=== PATIENT | female | born 1965 | race African-American/Black ===

== ENCOUNTER 2022-06-30 15:09 | Inpatient (IN) ==
[2022-06-30] MEDS ORDERED: NS 1,000 ML IV 1,000 ML ONE ×3 (15:16→17:51)
[2022-06-30] MEDS ORDERED: ZOFRAN INJ 4 MG VIAL IVP ONE (15:19)
[2022-06-30] MEDS ORDERED: NS 1,000 ML IV 1,000 ML IV ONE ×2 (15:19→16:41)
--- NOTE | 2022-06-30 15:19 | DR.DIZZY ---
HPI Time seen Time Seen by Provider: 06/30/22 15:41 Complaint Chief Complaint Doctor Comments: 56 y/o female presents for evlauation. Is perimenopausal, last menses 07/2021, last 6 weeks. Has had vaginal bleeding x 3 weeks, heavy at times. Now ill x 3 days - + frequent nausea, vomiting, unable to keep food/fluid down. Having lower abdominal cramping, radiates to back. Having weakness. Is a diabetic, glucose running high. Nurses Notes Reviewed Nurses Notes Review: Yes Source History Provided: Patient Context Stroke Symptoms: None PMH PMH Past Medical History: Yes Past Medical History: Diabetes and Hypertension Surgical History: No History Social History Does patient currently use any type of tobacco product: No Alcohol Use: None Do you use any recreational Drugs:: No ROS Review of Systems Constitutional: Malaise and Weakness Eyes: Blurred Vision ENTM: No Symptoms Reported Respiratoy: Non-Productive Cough Cardiovascular: No Symptoms Reported Gastrointestinal/Abdominal: Abdominal Pain, Nausea and Vomiting Genitourinary: Bleeding (vaginal, x 3 weeks) Neurological: Weakness and Dizziness Musculoskeletal: No Symptoms Reported Integumentary: No Symptoms Reported Hematologic/Lymphatic: No Symptoms Reported Psychiatric: No Symptoms Reported All Other Systems: Reviewed and Negative PE Vital Signs Vitals: Temperature 98.4 F Pulse Rate 118 Respiratory Rate 25 Blood Pressure 144/73 O2 Sat by Pulse Oximetry 99 General General Appearance: Alert and In No Apparent Distress Eyes Eye exam: PERRL and EOMI ENT ENT Exam: Normal Oropharynx and Mucous Membranes Moist Neck Neck Exam: Normal Inspection and Full ROM Respiratory Respiratory Exam: Normal Lung Sounds Bilat; negative Accessory Muscle Use or Respiratory Distress Cardiovascular Cardiovascular Exam: Regular Rate, Normal Rhythm and Normal Heart Sounds Abdominal Exam Abdominal Exam: Normal Inspection, Normal Bowel Sounds and Soft; negative Tenderness Extremeties Extremities Exam: Normal Inspection and Full ROM; negative Edema Neurologic Neurological Exam: Alert, Oriented X3 and CN II-XII Intact; negative Motor Sensory Deficit Skin Skin Exam: Warm and Dry COURSE Treatment Treatment: 56 y/o, menopausal, having vaginal bleeding x 3 weeks. Now ill x 3 days. + N/V, weakness. W/u initiated. Presentation c/w DKA. Glucose 453, low serum bicarb at 10.6. + moderate acetone in serum. CBC acceptable. Negative for covid/flu. Pt given 2L NS in the ER, 6 U regula insulin bolus. Started insulin drip. Discussed with Dr Thao, will admit. ROR Labs Reviewed Laboratory Results Reviewed?: Yes Result Diagrams: 06/30/22 15:34 06/30/22 15:34 Laboratory: WBC 12.3 X10^3/uL (3.6-10.0) H 06/30/22 15:34 RBC 5.14 X10^6/uL (3.5-5.4) 06/30/22 15:34 Hgb 14.3 g/dL (12.0-16.0) 06/30/22 15:34 Hct 44.9 % (36.0-47.0) 06/30/22 15:34 MCV 87.3 fL (80.0-100.0) 06/30/22 15:34 MCH 27.8 pg (27.0-34.0) 06/30/22 15:34 MCHC 31.8 g/dL (33.0-35.0) L 06/30/22 15:34 RDW 15.6 % (11.6-16.5) 06/30/22 15:34 Plt Count 306 X10^3/uL (150.0-450.0) 06/30/22 15:34 MPV 11.5 fL (7.4-11.0) H 06/30/22 15:34 Neut % (Auto) 80.7 % (42.0-75.0) H 06/30/22 15:34 Lymph % (Auto) 12.2 % (21.0-51.0) L 06/30/22 15:34 [place] % (Auto) 5.4 % (0.0-13.0) 06/30/22 15:34 Eos % (Auto) 0.1 % (0.9-2.9) L 06/30/22 15:34 Baso % (Auto) 1.6 % (0.2-1.0) H 06/30/22 15:34 Neut # (Auto) 10.0 x10^3/uL (2.2-4.8) H 06/30/22 15:34 Lymph # (Auto) 1.5 X10^3/uL (1.3-2.9) 06/30/22 15:34 [place] # (Auto) 0.7 x10^3/uL (0.3-0.8) 06/30/22 15:34 Eos # (Auto) 0.0 x10^3/uL (0.0-0.2) 06/30/22 15:34 Baso # (Auto) 0.2 X10^3/uL (0.0-0.1) H 06/30/22 15:34 Absolute Nucleated RBC 0.0 /100WBC 06/30/22 15:34 Sample Site Rrad 06/30/22 16:22 ABG pH 7.130 (7.35-7.45) L* 06/30/22 16:22 ABG pCO2 17.0 mmHg (35.0-45.0) L* 06/30/22 16:22 ABG pO2 174.0 mmHg (80.0-100.0) H 06/30/22 16:22 ABG HCO3 5.7 mmol/L (22-26) L* 06/30/22 16:22 ABG O2 Saturation 99.0 % (90-100) 06/30/22 16:22 ABG Base Excess -21.5 mmol/L (-2.0-2.0) L 06/30/22 16:22 [place] Test Pos 06/30/22 16:22 A-a Gradient -46.0 mmHg 06/30/22 16:22 FiO2 21.0 06/30/22 16:22 Blood Gas Comments Pt didi well elj 06/30/22 16:22 Sodium 134 mmol/L (136-145) L 06/30/22 15:34 Corrected Sodium 142 mmol/L (136-145) 06/30/22 15:34 Potassium 4.8 mmol/L (3.5-5.1) 06/30/22 15:34 Chloride 97 mmol/L (98-107) L 06/30/22 15:34 Carbon Dioxide 10.6 mmol/L (21-32) L* 06/30/22 15:34 BUN 22 mg/dL (7-18) H 06/30/22 15:34 Creatinine 1.39 mg/dL (0.55-1.02) H 06/30/22 15:34 Est GFR (MDRD) Af Amer 50 (>60) L 06/30/22 15:34 Est GFR (MDRD) Non-Af 42 (>60) L 06/30/22 15:34 Glucose 453 mg/dL (65-99) H 06/30/22 15:34 Calcium 8.7 mg/dL (8.5-10.1) 06/30/22 15:34 Corrected Calcium TNP 06/30/22 15:34 Total Bilirubin 0.50 mg/dL (0.2-1.0) 06/30/22 15:34 AST 17 Units/L (15-37) 06/30/22 15:34 ALT 35 Units/L (12-78) 06/30/22 15:34 Alkaline Phosphatase 129 Units/L (46-116) H 06/30/22 15:34 Total Protein 9.2 g/dL (6.4-8.2) H 06/30/22 15:34 Albumin 4.1 g/dL (3.4-5.0) 06/30/22 15:34 Globulin 5.1 g/dL (2.5-4.5) H 06/30/22 15:34 Albumin/Globulin Ratio 0.8 Ratio (1.1-2.1) L 06/30/22 15:34 Lipase 57 Units/L (73-393) L 06/30/22 15:34 HCG, Qual Negative <10 mIU/mL 06/30/22 15:34 Specimen Type Clean catch urine 06/30/22 16:01 Urine Color Bloody (YELLOW) 06/30/22 16:01 Urine Appearance Hazy (CLEAR) 06/30/22 16:01 Urine pH 5.0 (5.0 - 8.0) 06/30/22 16:01 Ur Specific [place] 1.025 (1.000-1.030) 06/30/22 16:01 Urine Protein 3+ (NEGATIVE) 06/30/22 16:01 Urine Glucose (UA) 4+ (NEGATIVE) 06/30/22 16: Urine Ketones 4+ (NEGATIVE) 06/30/22 16: Urine Blood 5+ (NEGATIVE) 06/30/22 16: Urine Nitrite Negative (NEGATIVE) 06/30/22 16: Urine Bilirubin Negative (NEGATIVE) 06/30/22 16:01 Urine Urobilinogen Normal (NORMAL) 06/30/22 16:01 Ur Leukocyte Esterase Negative (NEGATIVE) 06/30/22 16:01 Urine RBC Tntc /HPF (0-3) A 06/30/22 16:01 Urine WBC 0-2 /HPF (0-5) 06/30/22 16:01 Ur Squamous Epith Cells Moderate /HPF (NEGATIVE) 06/30/22 16:01 Urine Bacteria Trace /HPF (NEGATIVE) 06/30/22 16:01 Ur Culture Indicated? No/not indicated 06/30/22 16:01 Acetone, Semi-Quant Moderate (NEGATIVE) H 06/30/22 15:34 SARS-CoV-2 (PCR) Negative (NEGATIVE) 06/30/22 16:15 Influenza Type A (PCR) Negative (NEGATIVE) 06/30/22 16:15 Influenza Type B (PCR) Negative (NEGATIVE) 06/30/22 16:15 RSV (PCR) Negative (NEGATIVE) 06/30/22 16:15 Opioid Opioid Risk Tool Total: 0 Total Score Risk Category: Low Risk Copyright: Jake SILVESTRE predicting aberrant behaviors Discharge Plan Diagnosis Discharge Problem: DKA (diabetic ketoacidosis) Discharge Plan Patient Disposition: 09 ADMITTED INPATIENT Condition: Stable
[2022-06-30] MEDS ORDERED: ZOFRAN INJ 4 MG VIAL ONE (15:29)
[2022-06-30 15:51] LABS: SERUM ACETONE MODERATE (NEGATIVE)
[2022-06-30 15:54] LABS: BASOPHILS # (AUTO) 0.2 X10^3/uL (0.0-0.1); BASOPHILS % (AUTO) 1.6 % (0.2-1.0); EOSINOPHILS % (AUTO) 0.1 % (0.9-2.9); HEMATOCRIT 44.9 % (36.0-47.0); HEMOGLOBIN 14.3 g/dL (12.0-16.0); LYMPHOCYTES # (AUTO) 1.5 X10^3/uL (1.3-2.9); LYMPHOCYTES % (AUTO) 12.2 % (21.0-51.0); MEAN CORPUSCULAR HEMOGLOBIN 27.8 pg (27.0-34.0); MEAN CORPUSCULAR HGB CONC 31.8 g/dL (33.0-35.0); MEAN CORPUSCULAR VOLUME 87.3 fL (80.0-100.0); MEAN PLATELET VOLUME 11.5 fL (7.4-11.0); MONOCYTES # (AUTO) 0.7 x10^3/uL (0.3-0.8); MONOCYTES % (AUTO) 5.4 % (0.0-13.0); NEUTROPHILS % (AUTO) 80.7 % (42.0-75.0); RED BLOOD COUNT 5.14 X10^6/uL (3.5-5.4); RED CELL DISTRIBUTION WIDTH 15.6 % (11.6-16.5); WHITE BLOOD COUNT 12.3 X10^3/uL (3.6-10.0)
[2022-06-30 15:56] LABS: ALANINE AMINOTRANSFERASE 35 Units/L (12-78); ALBUMIN 4.1 g/dL (3.4-5.0); ALKALINE PHOSPHATASE 129 Units/L (46-116); ASPARTATE AMINO TRANSFERASE 17 Units/L (15-37); BLOOD UREA NITROGEN 22 mg/dL (7-18); CALCIUM 8.7 mg/dL (8.5-10.1); CHLORIDE 97 mmol/L (98-107); COR NA(FOR HYPERGLY) 142 mmol/L (136-145); CREATININE 1.39 mg/dL (0.55-1.02); LIPASE 57 Units/L (73-393); SODIUM 134 mmol/L (136-145); TOTAL PROTEIN 9.2 g/dL (6.4-8.2); eGFR NON BLACK RACES 42 (>60)
[2022-06-30 16:02] LABS: CARBON DIOXIDE 10.6 mmol/L (21-32)
[2022-06-30 16:08] LABS: BILIRUBIN,URINE NEGATIVE (NEGATIVE); BLOOD/HEMOGLOBIN,URINE 5+ (NEGATIVE); GLUCOSE, URINE 4+ (NEGATIVE); KETONES,URINE 4+ (NEGATIVE); LEUKOCYTE ESTERASE ,URINE NEGATIVE (NEGATIVE); NITRITES,URINE NEGATIVE (NEGATIVE); PROTEIN,URINE 3+ (NEGATIVE); UROBILINOGEN,URINE NORMAL (NORMAL)
[2022-06-30 16:13] LABS: APPEARANCE,URINE HAZY (CLEAR); COLOR,URINE BLOODY (YELLOW)
[2022-06-30 16:14] LABS: BACTERIA,URINE TRACE /HPF (NEGATIVE); RBC,URINE TNTC /HPF (0-3); SQUAMOUS EPITHELIAL CELL,UR MODERATE /HPF (NEGATIVE)
[2022-06-30 16:19] LABS: SERUM PREGNANCY TEST, QUAL NEGATIVE <10 mIU/mL
[2022-06-30 16:30] LABS: ABG BASE EXCESS -21.5 mmol/L (-2.0-2.0)
[2022-06-30 16:31] LABS: ABG HCO3 5.7 mmol/L (22-26)
[2022-06-30 16:32] LABS: ABG ALLEN TEST POS
[2022-06-30] MEDS ORDERED: NovoLIN R (or HumuLIN R) IV ONE (16:42)
[2022-06-30] MEDS ORDERED: NovoLIN R (or HumuLIN R) ONE (16:43)
--- NOTE | 2022-06-30 17:40 | US ---
PELVIC (NON OB)History: ABNORMAL VAG BLEEDING X 3 WEEKSComparison:NoneTechnique: Multiple grayscale and color flow Doppler images of the pelvis were obtained transabdominally.Findings:The uterus measures 6.4 x 4.0 x 5.8 cm. Questionable small fibroids measuring up to 1.3 cm. The endometrial stripe measures 8 mm. The right ovary measures 2.0 x 1.0 x 2.5 cm. The left was not seen. Normal flow in the right ovary. No adnexal masses. No free fluid.IMPRESSION:1.Questionable small fibroids. Otherwise unremarkable.Electronically signed by: FIONA COPPOLA (Jun 30, 2022 17:38:41)
[2022-06-30] MEDS ORDERED: ZOFRAN INJ 4 MG VIAL IVP PRN (17:43)
[2022-06-30] MEDS ORDERED: NovoLIN R (or HumuLIN R) SUBCUT PRN (17:43)
[2022-06-30] MEDS ORDERED: MYXREDLIN 100 UNIT/100 ML BAG 100 UNIT/100 ML PLAST..BAG IV ONE (17:51)
[2022-06-30] MEDS: MYXREDLIN 100 UNIT/100 ML BAG 100 UNIT/100 ML PLAST..BAG IV PRN (17:57)
[2022-06-30] MEDS: NS 1,000 ML IV 1,000 ML IV SCH (17:59)
[2022-06-30] MEDS: COZAAR PO SCH (18:25)
[2022-06-30] MEDS: NORVASC TAB 5 MG PO SCH (18:25)
[2022-06-30] MEDS: SNACK - Diabetic Appropriate PO SCH (19:23)
[2022-07-01] MEDS: NS 1,000 ML IV 1,000 ML IV SCH ×3 (02:00→17:43)
--- NOTE | 2022-07-01 02:18 | RAD ---
HISTORYWEAKNESS Relevant Clinical InformationSTUDYCHEST, 1 VIEWCOMPARISONNoneFINDINGSThe trachea is midline. The cardiac silhouette is unremarkable. The lungs are clear without focal infiltrate or effusion. The bony thorax is unremarkable.IMPRESSIONNormal chest.Electronically signed by: Daniel Ulloa (Jul 01, 2022 02:15:51)
[2022-07-01 05:11] LABS: BASOPHILS # (AUTO) 0.1 X10^3/uL (0.0-0.1); BASOPHILS % (AUTO) 0.6 % (0.2-1.0); HEMATOCRIT 36.7 % (36.0-47.0); LYMPHOCYTES # (AUTO) 2.3 X10^3/uL (1.3-2.9); LYMPHOCYTES % (AUTO) 25.7 % (21.0-51.0); MEAN CORPUSCULAR HEMOGLOBIN 27.9 pg (27.0-34.0); MEAN CORPUSCULAR HGB CONC 33.1 g/dL (33.0-35.0); MEAN CORPUSCULAR VOLUME 84.4 fL (80.0-100.0); MEAN PLATELET VOLUME 10.9 fL (7.4-11.0); MONOCYTES % (AUTO) 11.6 % (0.0-13.0); NEUTROPHILS # (AUTO) 5.5 x10^3/uL (2.2-4.8); NEUTROPHILS % (AUTO) 62.1 % (42.0-75.0); RED BLOOD COUNT 4.35 X10^6/uL (3.5-5.4); RED CELL DISTRIBUTION WIDTH 15.5 % (11.6-16.5); WHITE BLOOD COUNT 8.9 X10^3/uL (3.6-10.0)
[2022-07-01 05:20] LABS: HEMOGLOBIN 12.1 g/dL (12.0-16.0)
[2022-07-01 05:22] LABS: BLOOD UREA NITROGEN 30 mg/dL (7-18); CARBON DIOXIDE 16.5 mmol/L (21-32); CHLORIDE 111 mmol/L (98-107); CREATININE 1.74 mg/dL (0.55-1.02); SODIUM 141 mmol/L (136-145); eGFR NON BLACK RACES 32 (>60)
[2022-07-01 05:23] LABS: ALANINE AMINOTRANSFERASE 24 Units/L (12-78); ALKALINE PHOSPHATASE 89 Units/L (46-116); ASPARTATE AMINO TRANSFERASE 14 Units/L (15-37); CALCIUM 7.6 mg/dL (8.5-10.1); COR CA(FOR HYPOALB) 8.4 mg/dL (8.5-10.1); COR NA(FOR HYPERGLY) 143 mmol/L (136-145); TOTAL PROTEIN 6.7 g/dL (6.4-8.2)
[2022-07-01 05:36] LABS: SERUM ACETONE MODERATE (NEGATIVE)
[2022-07-01 07:21] LABS: ABG BASE EXCESS -12.3 mmol/L (-2.0-2.0); ABG HCO3 13.5 mmol/L (22-26)
[2022-07-01] MEDS ORDERED: NEBIVOLOL 10 MG PO SCH (09:00)
[2022-07-01] MEDS ORDERED: PATIENT'S HOME MEDICATION (Escitalopram Oxalate 20 mg Tablet) PO SCH (09:00)
[2022-07-01] MEDS ORDERED: LEXAPRO ONE (09:09)
[2022-07-01] MEDS: HYDROCHLOROTHIAZIDE 25 MG TAB PO SCH (09:16)
[2022-07-01] MEDS: SYNTHROID 75 mcg TAB PO SCH (09:17)
[2022-07-01] MEDS: LEXAPRO PO SCH (09:17)
[2022-07-01] MEDS: LOVENOX INJ 40 MG SYR SC SCH (09:17)
[2022-07-01] MEDS: NORVASC TAB 5 MG PO SCH (10:10)
[2022-07-01] MEDS: COZAAR PO SCH (10:10)
[2022-07-01 11:00] VITALS: BMI 37.9
[2022-07-01] MEDS: PROVERA PO SCH (12:10)
[2022-07-01] MEDS: PROTONIX INJ 40 MG VIAL IVP SCH (12:11)
[2022-07-01 14:13] LABS: CALCIUM 7.3 mg/dL (8.5-10.1); CARBON DIOXIDE 16.8 mmol/L (21-32); CREATININE 1.51 mg/dL (0.55-1.02)
[2022-07-01] MEDS: MYXREDLIN 100 UNIT/100 ML BAG 100 UNIT/100 ML PLAST..BAG IV PRN (17:56)
[2022-07-01 18:17] LABS: CALCIUM 7.9 mg/dL (8.5-10.1); CARBON DIOXIDE 19.1 mmol/L (21-32); CREATININE 1.4 mg/dL (0.55-1.02)
[2022-07-01] MEDS: SNACK - Diabetic Appropriate PO SCH (20:19)
[2022-07-01 21:58] LABS: CALCIUM 7.9 mg/dL (8.5-10.1); CARBON DIOXIDE 21.7 mmol/L (21-32); CREATININE 1.23 mg/dL (0.55-1.02)
--- NOTE | 2022-07-01 22:06 | DR.H&P ---
H&P - History & Physical for Day of: H&P Date: 07/01/22 - Chief Complaint Chief Complaint: Weakness, elevated blood sugars - History of Present Illness History of Present Illness: The patient is a 56yo BF who presented to ED due to generaalized weakness with nausea and abdominal pain. Patient found to be DKA. Patient gives history of last DKA 2007. State that she is is having vaginal bleeding x 3 weeks. States it is heavy at times. States she has had vaginal bleeding almost monthly x 6 mths. States last [employer] exam was 2 yrs ago before COVID. Patient denies any recent infections or GI symptoms. No other complaints voiced. - Past Medical History Past Medical History: Hypertension, Diabetes - Past Surgical History Surgical History: [employer] Surgery, Thyroidectomy - Family History Family Medical History: Diabetes Mellitus, Cancer - Social History Does patient currently use any type of tobacco product: No Have you used tobacco products in the last 12 months: No Type of Tobacco Use: None Does any household member use tobacco: No Alcohol Use: None Drug Use: Prescription Drugs - Medications Home Medications: codeine Adverse Reaction (Verified 06/30/22 15:10) CONTINUE taking the following medications amlodipine 5 mg tablet 1 tab PO QDAY 06/30/22 [History] blood-glucose sensor (Dexcom G6 Sensor device) 06/30/22 [History] blood-glucose transmitter (Dexcom G6 Transmitter device) 06/30/22 [History] escitalopram oxalate 20 mg tablet 20 mg PO DAILY 06/30/22 [History] gabapentin 100 mg capsule 100 mg PO QHS 06/30/22 [History] meloxicam 15 mg tablet 1 tab PO QDAY 06/30/22 [History] pitavastatin calcium 2 mg tablet (Livalo) 2 mg PO DAILY 06/30/22 [History] - Review of Systems Constitutional: Weakness, Malaise Eyes: No Symptoms Reported ENT: No Symptoms Reported Respiratory: No Symptoms Reported Cardiovascular: No Symptoms Reported Gastrointestinal: Abdominal Pain Genitourinary: No Symptoms Reported Musculoskeletal: No Symptoms Reported Skin: No Symptoms Reported Neurological: No Symptoms Reported - Physical Exam Vital Signs: Temperature 98.4 F Pulse Rate 97 Respiratory Rate 27 Blood Pressure 113/59 O2 Sat by Pulse Oximetry 100 Oriented: Normal Eyes: Normal Ear: Normal Nose: Normal Throat: Normal Respiratory: Clear Throughout Cardiovascular: Normal : Normal Auscultation: Bowel Sounds: Normal Palpation: Normal Tenderness: Suprapubic Skin: Decreased [place] Musculoskeletal: Normal Psychiatric: Normal Mood Description: Calm Affect: Normal Speech Pattern: Clear - Assessment/Plan (1) DKA (diabetic ketoacidosis) Status: Acute Plan: IV Hydration. Insulin drip. MOnitor Acetone. (2) Post-menopausal bleeding Status: Acute Plan: [employer] evaluation inpatient vs outpatient - Allergies Allergies/Adverse Reactions: Allergies Allergy/AdvReac Type Severity Reaction Status Date / Time daniel AlbaradoReac Verified 06/30/22 15:10
[2022-07-02] MEDS ORDERED: MICRO K EXTEN CAP 10 MEQ PO PRN (00:24)
[2022-07-02] MEDS ORDERED: K-RIDER 10 MEQ/NS 100 ML 10 MEQ/100 ML BAG IV PRN (00:24)
[2022-07-02] MEDS ORDERED: POTASSIUM CHLORIDE LIQ 20 MEQ UDC PO PRN (00:24)
[2022-07-02] MEDS ORDERED: K-DUR TAB 20 MEQ PO PRN (00:24)
[2022-07-02] MEDS: NS 1,000 ML IV 1,000 ML IV SCH ×3 (02:01→19:00)
[2022-07-02] MEDS: KLOR-CON PO PRN ×2 (02:13→20:18)
[2022-07-02 04:33] LABS: BASOPHILS % (AUTO) 0.4 % (0.2-1.0); EOSINOPHILS % (AUTO) 0.2 % (0.9-2.9); HEMATOCRIT 35.1 % (36.0-47.0); HEMOGLOBIN 11.5 g/dL (12.0-16.0); LYMPHOCYTES # (AUTO) 1.7 X10^3/uL (1.3-2.9); LYMPHOCYTES % (AUTO) 22.7 % (21.0-51.0); MEAN CORPUSCULAR HEMOGLOBIN 27.8 pg (27.0-34.0); MEAN CORPUSCULAR HGB CONC 32.8 g/dL (33.0-35.0); MEAN CORPUSCULAR VOLUME 84.9 fL (80.0-100.0); MEAN PLATELET VOLUME 10.7 fL (7.4-11.0); MONOCYTES # (AUTO) 0.6 x10^3/uL (0.3-0.8); MONOCYTES % (AUTO) 8.8 % (0.0-13.0); NEUTROPHILS % (AUTO) 67.9 % (42.0-75.0); RED BLOOD COUNT 4.13 X10^6/uL (3.5-5.4); RED CELL DISTRIBUTION WIDTH 15.7 % (11.6-16.5); WHITE BLOOD COUNT 7.4 X10^3/uL (3.6-10.0)
[2022-07-02 04:44] LABS: ALANINE AMINOTRANSFERASE 21 Units/L (12-78); ALBUMIN 2.7 g/dL (3.4-5.0); ALKALINE PHOSPHATASE 83 Units/L (46-116); ASPARTATE AMINO TRANSFERASE 16 Units/L (15-37); BLOOD UREA NITROGEN 21 mg/dL (7-18); CALCIUM 7.8 mg/dL (8.5-10.1); CARBON DIOXIDE 19.2 mmol/L (21-32); CHLORIDE 110 mmol/L (98-107); COR CA(FOR HYPOALB) 8.8 mg/dL (8.5-10.1); COR NA(FOR HYPERGLY) 140 mmol/L (136-145); CREATININE 1.02 mg/dL (0.55-1.02); SODIUM 137 mmol/L (136-145); TOTAL PROTEIN 6.1 g/dL (6.4-8.2); eGFR NON BLACK RACES 60 (>60)
[2022-07-02 04:56] LABS: SERUM ACETONE SMALL (NEGATIVE)
[2022-07-02] MEDS ORDERED: LEXAPRO ONE (08:36)
[2022-07-02] MEDS: PROTONIX INJ 40 MG VIAL IVP SCH (08:38)
[2022-07-02] MEDS: COZAAR PO SCH (08:38)
[2022-07-02] MEDS: LOVENOX INJ 40 MG SYR SC SCH (08:38)
[2022-07-02] MEDS: LEXAPRO PO SCH (08:38)
[2022-07-02] MEDS: HYDROCHLOROTHIAZIDE 25 MG TAB PO SCH (08:39)
[2022-07-02] MEDS: NORVASC TAB 5 MG PO SCH (08:39)
[2022-07-02] MEDS: SYNTHROID 75 mcg TAB PO SCH (08:39)
[2022-07-02] MEDS: PROVERA PO SCH (10:06)
[2022-07-02] MEDS ORDERED: LEVEMIR SC ONE (15:10)
[2022-07-02] MEDS: HumaLOG SC SCH (16:10)
[2022-07-02] MEDS ORDERED: SNACK - Diabetic Appropriate PO SCH ×2 (20:00)
[2022-07-02] MEDS: SNACK - Diabetic Appropriate PO SCH (20:16)
[2022-07-03] MEDS: NS 1,000 ML IV 1,000 ML IV SCH ×2 (02:42→11:02)
[2022-07-03 05:14] LABS: BASOPHILS % (AUTO) 0.7 % (0.2-1.0); EOSINOPHILS % (AUTO) 0.7 % (0.9-2.9); HEMATOCRIT 34.5 % (36.0-47.0); HEMOGLOBIN 11.3 g/dL (12.0-16.0); LYMPHOCYTES % (AUTO) 56.5 % (21.0-51.0); MEAN CORPUSCULAR HEMOGLOBIN 27.5 pg (27.0-34.0); MEAN CORPUSCULAR HGB CONC 32.8 g/dL (33.0-35.0); MEAN CORPUSCULAR VOLUME 83.8 fL (80.0-100.0); MEAN PLATELET VOLUME 11.1 fL (7.4-11.0); MONOCYTES # (AUTO) 0.5 x10^3/uL (0.3-0.8); MONOCYTES % (AUTO) 9.7 % (0.0-13.0); NEUTROPHILS # (AUTO) 1.7 x10^3/uL (2.2-4.8); NEUTROPHILS % (AUTO) 32.4 % (42.0-75.0); RED BLOOD COUNT 4.12 X10^6/uL (3.5-5.4); RED CELL DISTRIBUTION WIDTH 15.7 % (11.6-16.5); WHITE BLOOD COUNT 5.4 X10^3/uL (3.6-10.0)
[2022-07-03 05:29] LABS: ALANINE AMINOTRANSFERASE 20 Units/L (12-78); ALBUMIN 2.6 g/dL (3.4-5.0); ALKALINE PHOSPHATASE 78 Units/L (46-116); ASPARTATE AMINO TRANSFERASE 14 Units/L (15-37); BLOOD UREA NITROGEN 7 mg/dL (7-18); CARBON DIOXIDE 25.3 mmol/L (21-32); CHLORIDE 111 mmol/L (98-107); COR CA(FOR HYPOALB) 9.1 mg/dL (8.5-10.1); COR NA(FOR HYPERGLY) 147 mmol/L (136-145); CREATININE 0.65 mg/dL (0.55-1.02); SODIUM 145 mmol/L (136-145); TOTAL PROTEIN 5.8 g/dL (6.4-8.2); eGFR NON BLACK RACES > 60 (>60)
[2022-07-03] MEDS: HumaLOG SC SCH ×2 (06:42→12:06)
[2022-07-03] MEDS: KLOR-CON PO PRN (06:50)
[2022-07-03] MEDS ORDERED: LEVEMIR SC SCH (09:00)
[2022-07-03] MEDS ORDERED: LEXAPRO ONE (09:06)
[2022-07-03] MEDS: PROVERA PO SCH (09:14)
[2022-07-03] MEDS: PROTONIX INJ 40 MG VIAL IVP SCH (09:15)
[2022-07-03] MEDS: SYNTHROID 75 mcg TAB PO SCH (09:15)
[2022-07-03] MEDS: HYDROCHLOROTHIAZIDE 25 MG TAB PO SCH (09:15)
[2022-07-03] MEDS: NORVASC TAB 5 MG PO SCH (09:15)
[2022-07-03] MEDS: COZAAR PO SCH (09:16)
[2022-07-03] MEDS: LEXAPRO PO SCH (09:16)
[2022-07-03] MEDS: LOVENOX INJ 40 MG SYR SC SCH (09:16)
[2022-07-03 15:11] VITALS: BP 138/64
== END 2022-07-03 15:53 | disposition home or self-care (01) | DRG 639 ==
LOC: ER 15:09 → ICU 17:37
PROVIDERS: ADMIT Internal Medicine; ATTEND Internal Medicine
DX: E11.10 Type 2 diabetes mellitus with ketoacidosis without coma; R10.84 Generalized abdominal pain; R53.1 Weakness; Z20.822 Contact with and (suspected) exposure to COVID-19; I10 Essential (primary) hypertension; N95.0 Postmenopausal bleeding; R11.0 Nausea